=== PATIENT | male | born 1980 | race Caucasian/White ===

== ENCOUNTER 2025-04-18 08:43 | Day surgery (SDC) | payer MEDICAID ==
--- NOTE | 2025-04-11 10:20 | ELECTROCARDIOGRAPH REPORT ---
[facility] Test Date: 2025-04-11 Test Time: 10:18:47 Pat Name: ALEXIS OLIVA Department: [facility]-PRE-OP Patient ID: [id number] Room: Gender: M Staff Genetic Counselor: rose mary : 1980 Requested By: ALBERTO BARAJAS Order Number: [id number] Reading MD: Dr. RAFAEL Howard Measurements Intervals [place] Rate: 72 P: 71 PA: 145 QRS: 74 QRSD: 99 T: 45 QT: 400 QTc: 438 Interpretive Statements Sinus rhythm Electronically Signed On 04-11-2025 17:34:[address] RAFAEL Howard Please click the below link to view image of tracing.
[2025-04-11 10:48] LABS: MEAN PLATELET VOLUME 8.5 FL (7.4-10.4); PRE OP HEMATOCRIT 40.2 % (42.0-52.0); PRE OP HEMOGLOBIN 13.5 g/dL (14.0-17.9); PRE OP PLATELET COUNT 233 X10'3 (140-440); PRE OP WHITE BLOOD COUNT 11.1 10'3 (4.8-10.8); RED CELL DISTRIBUTION WIDTH 14.8 % (11.5-14.5)
[2025-04-11 11:06] LABS: CREATININE 0.86 MG/DL (0.60-1.10); PRE OP ALT 19 U/L (30-65); PRE OP ANION GAP 4 (8-16); PRE OP AST 19 U/L (10-37); PRE OP BILIRUB, TOTAL 0.3 MG/DL (0.0-1.0); PRE OP GLUCOSE 107 MG/DL (70-104); PRE OP POTASSIUM 4.0 MMOL/L (3.4-5.1); PRE OP SODIUM 141 MMOL/L (135-145); TOTAL CARBON DIOXIDE 31.1 MMOL/L (24-32); eGFR > 90 ML/MIN
[~2025-04-18] VITALS: Ht 182.9 cm; Wt 82.2 kg
[2025-04-18] VITALS (12 sets, daily range): BP systolic 114–166; BP diastolic 71–108; PULSE 52–88; RESP 12–16; TEMP 97.8; O2SAT 96–99
[2025-04-18] MEDS: ceFAZolin 2gm/dext,iso 50mL 50 ML IV ONE (05:30)
[~2025-04-18 08:43] MED LIST: NO HOME MEDS
[2025-04-18] MEDS: ringers solution, lacted 1,000 ML IV SCH (09:25)
--- NOTE | 2025-04-18 10:25 | HISTORY AND PHYSICAL ---
History & Physical Providers to CC CC: ALBERTO BARAJAS MD ~ History of Present Illness Reason for Admit\Complaint: Right inguinal hernia History of Present Illness Interval history and physical exam Patient is here today for elective repair of a right inguinal hernia He was seen in the office greater than 30 days ago but denies any change in his past medical history Please see previous history and physical exam for all pertinent details He is scheduled for robotic assisted, laparoscopic right possible left inguinal hernia repair with mesh The right side has been marked Allergies: Coded Allergies: No Known Allergies (Unverified , 04/17/25) Home Medications Home Medications Active Reported No Home Medications (Home Med List) Each Exam General: 44-year-old male in no acute distress Chest: Lungs are clear to auscultation bilaterally Cardiovascular: Regular rate and rhythm without murmurs Abdomen: Soft and nondistended Right side marked Problems: (1) Right inguinal hernia Assessment & Plan: The risks, benefits, and alternatives to a robotic assisted, laparoscopic right possible left inguinal hernia repair with mesh were discussed with the patient. Risks include, but are not limited to, bleeding, infection, injury to intra-abdominal structures, hernia recurrence and chronic postoperative pain. Patient verbalized understanding and wishes to proceed with surgery. We will do so today as scheduled ALBERTO BARAJAS MD Apr 18, 2025 10:24
[2025-04-18] MEDS ORDERED: LIDOcaine 1% 30ml preserv. free vial ONE (10:36)
[2025-04-18] MEDS ORDERED: BUPIVAcaine 2.5mg/ml inj 50ml vial (contains preservative) ONE (10:36)
[2025-04-18] MEDS ORDERED: midazolam 1 mg/ML 2ml injection ONE (10:48)
[2025-04-18] MEDS ORDERED: fentaNYL /PF 50mcg/ml 5ml ampule ONE (10:48)
[2025-04-18] MEDS ORDERED: rocuronium 10mg/ml inj IV ONE (11:00)
[2025-04-18] MEDS ORDERED: HYDROmorphone/PF 0.2 MG/ML SYRINGE IV PRN ×2 (11:00)
[2025-04-18] MEDS ORDERED: hydrALAZINE 20mg/ml inj. IV PRN (11:00)
[2025-04-18] MEDS ORDERED: LIDOcaine 2% (20mg/ml) 5ml vial ONE (11:00)
[2025-04-18] MEDS ORDERED: labetalol 20mg/4ml (5mg/ml) syringe IV PRN (11:00)
[2025-04-18] MEDS ORDERED: ringers solution, lacted 1,000 ML IV SCH (11:00)
[2025-04-18] MEDS ORDERED: propofol inj 20 ML IV ONE (11:00)
[2025-04-18] MEDS ORDERED: dexamethasone sod phosphate 4mg/ml inj. ONE (11:03)
[2025-04-18] MEDS ORDERED: ondansetron/PF 4mg/2ml inj ONE (11:03)
[2025-04-18] MEDS: BUPIVAcaine/PF 2.5 mg/ml (0.25%) 30ml vial IJ ONE (11:05)
[2025-04-18] MEDS: LIDOcaine 1% 30ml preserv. free vial IJ ONE (11:05)
[2025-04-18] MEDS ORDERED: glycopyrrolate 0.2mg/ml inj ONE (11:54)
[2025-04-18] MEDS: morphine 4 MG/ML inj SYRINge IV PRN (12:20)
[2025-04-18] MEDS: acetaminophen 1,000mg/100ml IV 100 ML IV PRN (12:20)
[2025-04-18] MEDS ORDERED: HYDROcodone/acetaminophen 5mg/325mg tablet PO PRN (12:40)
--- NOTE | 2025-04-18 12:44 | OPERATIVE REPORT ---
Operative Report Providers to CC: BONIFACIO BARAJAS MD ~ Date of Procedure: Apr 18, 2025 Pre-Operative Diagnosis: Right inguinal hernia Post-Operative Diagnosis SAME as PRE-Op Procedure Performed Robotic assisted, laparoscopic right inguinal hernia repair with mesh Surgeon: Bonifacio Barajas MD FACS Hvac Tech None Anesthesiologist: Cesar Becekr Type of Anesthesia: General Findings: Very, very large indirect right inguinal hernia extending deep into the right hemiscrotum Wound class I Complications None Prosthetics\Implants used: Extra-large right Dextile mesh Estimated Blood Loss: Minimal Specimen Removed: None Description of Procedure: Patient was brought to the operating room and identified by the nursing staff and the attending physician. Patient was placed supine and general anesthesia was induced. Patient's abdomen was prepped and draped in standard sterile fashion. Preoperative antibiotics were given. Supraumbilical incision was made to allow for standard [place] entry technique. Laparoscope was inserted after insufflation. Bilateral, 8.5 mm robotic trochars were placed under laparoscopic guidance following administration of local anesthetic. The da Pat robotic arm was docked to the patient and instruments placed intra-abdominally under laparoscopic visualization. The left hemipelvis was examined and showed no evidence of left inguinal hernia. An indirect hernia was identified on the right side. Hernia sac was quite large in size. A rent was created in the peritoneum from the median umbilical fold and carried out laterally towards the anterior superior iliac spine. Preperitoneal flap was created and carried down to the symphysis pubis. The retropubic space of [place] was developed and the bladder swept medially. Dissection was carried out laterally until an indirect hernia sac was identified. This was very, very large in size, extending deep into the right hemiscrotum. Hernia sac was completely dissected away from the cord structures and reduced. The critical view of the myopectineal orifice was achieved. Dissection was carried out laterally to allow space for mesh deployment. An extra- large, Dextile mesh and suture was passed intra-abdominally. Mesh was laid in the preperitoneal space covering both indirect, direct, and potential femoral and obturator hernias. Mesh laid without wrinkles or folds. 3 tacking sutures using 0 Ethibond were used to fix the mesh at the symphysis pubis, rectus abdominis, and just anterior to the anterior superior iliac spine. The peritoneal rent was then closed with running, 2/0, absorbable locking suture. [place] were retrieved. Abdomen was deflated and secondary trochars removed. Fascia at the umbilical port site was closed with 0 Vicryl sutures. Skin incisions were closed with 4-0 Monocryl sutures in a subcuticular fashion. Sterile dressings were applied. Patient was awakened and taken to the postanesthesia care unit in stable condition. Counts repoted as correct: Yes BONIFACIO BARAJAS MD Apr 18, 2025 12:44
[2025-04-18] MEDS: ondansetron/PF 4mg/2ml inj IV PRN (13:43)
--- NOTE | 2025-04-18 19:08 | OPERATIVE REPORT ---
Operative Report Providers to CC CC: BONIFACIO BARAJAS MD ~ Date of Procedure: Apr 18, 2025 Pre-Operative Diagnosis: Right inguinal hernia Post-Operative Diagnosis SAME as PRE-Op Procedure Performed Right inguinal hernia repair This is a duplicate report please disregard Surgeon: Bonifacio Barajas MD FACS Ship Fastener None Anesthesiologist: Cesar Becker Type of Anesthesia: General Findings: Very, very large indirect right inguinal hernia Complications None Prosthetics\Implants used: Extra-large right Dextile mesh Estimated Blood Loss: Minimal Specimen Removed: None Description of Procedure: Duplicate report; please disregard BONIFACIO BARAJAS MD Apr 18, 2025 19:08
== END 2025-04-18 14:00 | disposition home or self-care (01) ==
LOC: PAS 08:43
PROVIDERS: ATTEND Surgery
DX: K40.90 Unilateral inguinal hernia, without obstruction or gangrene, not specified as recurrent (principal); Z98.890 Other specified postprocedural states; Z83.3 Family history of diabetes mellitus; Z80.9 Family history of malignant neoplasm, unspecified; Z87.891 Personal history of nicotine dependence; Z79.899 Other long term (current) drug therapy
CPT/HCPCS: 36415; 49650; 80053; 82948; 85025; 93005; C1781; J0131; J1100; J2003; J2250; J2270; J2405; J2704; J2710; J3010; J3490; J7030; J7120; S2900; Z7506; Z7508; Z7512; A4215; A4618